=== PATIENT | female | born 1945 | race Caucasian/White ===

== ENCOUNTER → 2017-09-27 | Outpatient (CLI) | payer OTHER ==
[~2017-09-27] MED LIST: CATAFLAM50 MG PO; ORPH100T PO
== END | disposition home or self-care (01) ==
LOC: MRI 10:07
DX: C25.0 Malignant neoplasm of head of pancreas (principal); C25.9 Malignant neoplasm of pancreas, unspecified
CPT/HCPCS: 74182; A9579

== ENCOUNTER 2018-02-14 08:47 | Outpatient (CLI) | payer OTHER | END 2018-02-14 10:02 | disposition home or self-care (01) | LOC: TOM 08:47 | DX: C25.9 Malignant neoplasm of pancreas, unspecified (principal); C78.7 Secondary malignant neoplasm of liver and intrahepatic bile duct | CPT/HCPCS: 74177; Q9965 ==

== ENCOUNTER 2018-05-22 09:52 | Outpatient (CLI) | payer OTHER | END 2018-05-22 11:14 | disposition home or self-care (01) | LOC: TOM 09:52 | DX: C78.7 Secondary malignant neoplasm of liver and intrahepatic bile duct (principal) | CPT/HCPCS: 74177; Q9965 ==